=== PATIENT | female | born 1985 | race Caucasian/White ===

== ENCOUNTER 2019-12-20 09:54 | Emergency (ER) | payer OTHER ==
[~2019-12-20] VITALS: Ht 152.4 cm; Wt 79.4 kg
[2019-12-20] MEDS ORDERED: NORFLEX100MG PO (12:39)
[2019-12-20] MEDS ORDERED: KETO10TA2 PO (12:39)
== END 2019-12-20 12:47 | disposition home or self-care (01) ==
LOC: ER 09:54
DX: R07.89 Other chest pain (principal); Z03.818 Encounter for observation for suspected exposure to other biological agents ruled out

== ENCOUNTER 2024-05-11 11:38 | Emergency (ER) | payer OTHER ==
[~2024-05-11] VITALS: Ht 152.4 cm; Wt 86.2 kg
[~2024-05-11 11:38] MED LIST: KETO10TA2 PO; NORFLEX100MG PO
[2024-05-11] MEDS ORDERED: KETOROLAC TROMETHAMINE 60 MG VIAL IM STA (14:52)
[2024-05-11] MEDS ORDERED: KETOROLAC TROMETHAMINE 60 MG VIAL IM ONE (14:57)
== END 2024-05-11 16:27 | disposition home or self-care (01) ==
LOC: ER 11:40
DX: S30.0XXA Contusion of lower back and pelvis, initial encounter (principal); W19.XXXA Unspecified fall, initial encounter; Y93.89 Activity, other specified; Y92.89 Other specified places as the place of occurrence of the external cause; Y99.8 Other external cause status

== ENCOUNTER 2024-12-07 19:15 | Emergency (ER) | payer OTHER ==
[~2024-12-07] VITALS: Ht 152.4 cm; Wt 89.8 kg
[2024-12-07 20:15] VITALS: BP 95/66; O2SAT 100
[2024-12-07] MEDS ORDERED: ORPHENADRINE CITRATE 30 MG/ML AMPUL ONE (21:58)
[2024-12-07] MEDS ORDERED: KETOROLAC TROMETHAMINE 60 MG VIAL IM ONE ×2 (21:58→22:00)
[2024-12-07] MEDS ORDERED: ORPHENADRINE CITRATE 30 MG/ML AMPUL IM ONE (22:00)
[2024-12-07] MEDS ORDERED: MIRALAX17 GM PO (22:55)
[2024-12-07] MEDS ORDERED: NORFLEX100MG PO (22:55)
== END 2024-12-08 00:54 | disposition home or self-care (01) ==
LOC: ER 19:15
DX: M62.838 Other muscle spasm (principal); R10.9 Unspecified abdominal pain